=== PATIENT | male | born 1985 | race Caucasian/White ===

== ENCOUNTER 2018-11-12 21:16 | Emergency (ER) | payer OTHER, SELFPAY ==
[2018-11-12 21:17] VITALS: BP 147/84; PULSE 86; RESP 18; TEMP 36.7; O2SAT 95; BMI 26.3
--- NOTE | 2018-11-13 07:43 | ED.BURNSMOKE ---
HPI - Burn/Smoke Inhalation General Chief complaint: Burn/Smoke Inhalation Stated complaint: sunburn on back Time Seen by Provider: 11/12/18 21:19 Source: patient and family Mode of arrival: ambulatory Limitations: no limitations History of Present Illness HPI Narrative: 32-year-old male nonsmoker with benign medical history presents to the emergency department with a chief complaint of 1 day of sunburn on his back. He was exposed to the sun over the majority of the day without protection and presents with burning and itching on his back. He denies any blisters or history of the same. He denies any ojyv-rre-chzcmhy medications such as Tylenol or Motrin. Onset (ago): hour(s) Location: back Associated symptoms: denies other symptoms Related Data Allergies Allergy/AdvReac Type Severity Reaction Status Date / Time No Known Drug Allergies Allergy Verified 11/12/18 21:29 Review of Systems Constitutional Denies chills, Denies fever(s), Denies lethargy and Denies weakness Eyes Denies change in vision, Denies eye discharge, Denies irritation and Denies loss of vision ENT Ears, Nose, Mouth, and Throat: Denies change in voice, Denies neck pain and Denies sore throat Cardiovascular Denies chest pain, Denies irregular heart rhythm, Denies lightheadedness, Denies palpitations, Denies dyspnea, Denies dyspnea on exertion and Denies orthopnea Respiratory Denies cough, Denies dyspnea, Denies dyspnea on exertion and Denies wheezing Gastrointestinal Gastrointestinal: Denies abdominal pain, Denies change in bowel habits, Denies diarrhea, Denies nausea and Denies vomiting Genitourinary Denies hematuria, Denies flank pain, Denies urinary incontinence and Denies urinary urgency Musculoskeletal Denies neck pain Integumentary/Breasts Denies pruritus, Reports erythema, Denies rash and Denies wounds Neurologic Denies confusion, Denies loss of vision and Denies weakness Psychiatric Denies anxiety, Denies confusion, Denies depression, Denies homicidal ideation and Denies suicidal ideation Endocrine Denies palpitations Hematologic/Lymphatic Denies easy bruising Allergic/Immunologic Denies wheezing PFSH Social History Smoking Status: Never smoker Social History Smoking Status: Never smoker Exam Narrative Exam Narrative: GEN: AOx3 and in mild distress EYES: Pupils are equal, round, and reactive to light and accommodation. Extraoccular muscles are intact bilaterally. There is no subconjunctival hemorrhage or exudate. CHEST: Lungs are clear to auscultation bilaterally and free of wheezes, rales, or rhonchi. Heart rate is regular rhythm, there are no murmurs, clicks, rubs, or gallops. There is no chest wall tenderness. ABD: Abdomen is soft and nontender. There is no guarding or rebound. Bowel sounds are normal in all 4 quadrants. There is no mass or organomegaly. EXT: Full painless ROM of all extremities with no loss of sensation or strength. SKIN: Erythema and warmth to back, no blisters. Initial Vital Signs Initial Vital Signs: Vital Signs Temperature 98.0 F 11/12/18 21:17 Pulse Rate 86 11/12/18 21:17 Respiratory Rate 18 11/12/18 21:17 Blood Pressure 147/84 H 11/12/18 21:17 Pulse Oximetry 95 11/12/18 21:17 Discharge Plan Departure Patient Disposition: Home Clinical Impression: 1st degree sunburn Discharge Date/Time: 11/12/18 21:28 Interventions: ED Discharge Assessment Last Done: 11/12/18 21:30 Instructions: DI for Sunburn Activity Restrictions/Additional Instructions: *You have been diagnosed with [1st degree sunburn to back] *What to do: *Take medications as directed: Hcyr-[id number] medications such as ibuprofen will help with inflammation and pain. If her itching becomes intense consider antihistamine such as Zyrtec or Jodie *Follow up with your primary care provider in 2-3 days, call for an appointment. Let them know you were seen in the Emergency Department and that we ask that you be seen in follow up *Return to ER if you should have any new, worsening or concerning symptoms
== END 2018-11-12 21:28 | disposition home or self-care (01) ==
PROVIDERS: Emergency Provider Emergency Medicine
DX: L55.0 Sunburn of first degree (principal)
CPT/HCPCS: 99282